=== PATIENT | male | born 1995 | race Hispanic/Latino ===

== ENCOUNTER 2017-02-06 20:26 | Emergency (ER) | payer SELFPAY ==
[2017-02-06] MEDS ORDERED: Proparacaine 0.5% Opth 15 ML BOT ONE (20:38)
[2017-02-06] MEDS ORDERED: Erythromycin Base 0.5% Oint 1 GM TUBE ONE (21:11)
== END 2017-02-06 21:38 | disposition home or self-care (01) ==
LOC: NAV ERS 20:26
DX: T15.02XA Foreign body in cornea, left eye, initial encounter (principal)
CPT/HCPCS: 65220